=== PATIENT | female | born 1970 | race African-American/Black ===

== ENCOUNTER → 2020-07-13 | Outpatient (CLI) | payer OTHER ==
--- NOTE | 2020-07-13 09:35 | KCIC ---
EXAM: Bilateral knees, standing view. HISTORY: Pain. COMPARISON: None. FINDINGS: A frontal standing view both knees is obtained. There is no fracture, dislocation or sublux ation. IMPRESSION: No acute osseous finding. Electronically signed by: Dulce Aden MD (07/13/2020 9:33 AM) [id number]
== END ==
LOC: KCIC 08:10
PROVIDERS: ATTEND Physical Medicine & Rehabilitation
DX: M25.561 Pain in right knee (principal); M25.562 Pain in left knee
CPT/HCPCS: 73565